=== PATIENT | female | born 1990 | race Hispanic/Latino ===

== ENCOUNTER 2020-07-24 15:46 | Outpatient (CLI) | payer MEDICAID, SELFPAY ==
--- NOTE | ~2020-07-24 | US_ITS ---
EXAMINATION: US OB follow up DATE: 07/24/2020 16:31 INDICATION: Routine care. No care. TECHNIQUE: Real-time ultrasound of the pelvis was performed. COMPARISON: None. FINDINGS: There is a single living fetus in vertex presentation. The placenta is anterior. heart rate is 150 beats per minute (bpm). The amniotic fluid index is 15.1 cm, which is normal. The following biometric data were obtained: Biparietal diameter (BPD): 5.2 cm; head circumference (HC): 19.2 cm; abdominal circumference (AC): 17 .9 cm; femur length (FL): 3.5 cm. These measurements are discordant with FL/AC < 2 standard deviations of the mean. Estimated weight is 467 g +/- 70 g. As single measurements, these parameters are each equal to the following estimated gestational ages: BPD: 21 weeks 5 days. HC: 21 weeks 3 days. AC: 22 weeks 6 days. FL: 21 weeks 1 days. estimated gestational age based solely on measurements from this exam is 21 weeks 6 days +/- 1 weeks 4 days. IMPRESSION: 1. Single living fetus in vertex presentation. 2. Estimated date of delivery of 11/28/2020. 3. Discordant biometrics with low FL/AC ratio. Reviewed, dictated and finalized at location A.
== END 2020-07-24 15:47 | disposition home or self-care (01) ==
PROVIDERS: Visit Provider Obstetrics & Gynecology
DX: Z34.92 Encounter for supervision of normal pregnancy, unspecified, second trimester (principal); Z3A.21 21 weeks gestation of pregnancy
CPT/HCPCS: 76816

== ENCOUNTER 2020-08-24 10:47 | Outpatient (CLI) | payer MEDICAID, SELFPAY ==
--- NOTE | ~2020-08-24 | US_ITS ---
EXAMINATION: US OB /maternal detail DATE: 08/24/2020 12:25 INDICATION: survey TECHNIQUE: Multiple obstetric sonographic images performed. FINDINGS: Ultrasound dated 07/24/2020. There is a single living fetus in transverse presentation. The placenta is anterior without placenta previa. Amniotic fluid volume is normal. DENNY measures 19.1 cm cm. cardiac activity and movement is noted with a heart rate of 163 beats per minute. The following anatomy was identified as normal: 4 chamber heart 3 vessel cord cord insertion kidneys urinary bladder stomach spine diaphragm ventricles cisterna magna cerebellum Nuchal fold not well visualized. The following biometric data were obtained: BPD: 67mm corresponds to gestational age 27 weeks 0 days. Head circumference: 245 mm corresponds to gestational age 26 weeks 5 days. Abdominal circumference: 239 mm corresponds to gestational age 28 weeks 1 days. Femur length: 47 mm corresponds to gestational age 25 weeks 3 days. Head circumference to abdominal circumference ratio: 1.02 (normal range for expected gestational age is 1.05-1.22). Estimated weight: 1020 grams +/- 153 grams using Hadlock method. IMPRESSION: 1: Single living intrauterine with an estimated gestational age of 26weeks 2days by initial ultrasound measurements, with an EDC of 11/28/2020 in length versus presentation. 2. Normal survey. Reviewed, dictated and finalized at location B. IMPRESSION: 1: Single living intrauterine with an estimated gestational age of 26 weeks 2days by initial ultrasound measurements, with an EDC of 11/28/2020 in le ngth versus presentation. 2. Normal survey.
== END 2020-08-24 10:48 | disposition home or self-care (01) ==
PROVIDERS: Visit Provider Obstetrics & Gynecology
DX: Z34.82 Encounter for supervision of other normal pregnancy, second trimester (principal); Z3A.00 Weeks of gestation of pregnancy not specified
CPT/HCPCS: 76805

== ENCOUNTER 2020-09-14 12:23 | Outpatient (CLI) | payer OTHER, SELFPAY ==
--- NOTE | ~2020-09-14 | US_ITS ---
EXAMINATION: US OB follow up DATE: 09/14/2020 13:02 INDICATION: Routine care during third trimester TECHNIQUE: Real-time ultrasound of the pelvis was performed. The interpreting radiologist was not pre sent for the study. COMPARISON: 08/24/2020 FINDINGS: There is a single living fetus in vertex presentation. The placenta is anterior. card iac activity and movement are noted. heart rate is 161 beats per minute (bpm). The amniot ic fluid index is normal. The following biometric data were obtained: Biparietal diameter (BPD): 7.5 cm; head circumference (HC): 28.1 cm; abdominal circumference (AC): 27 .8 cm; femur length (FL): 5.2 cm. The femoral length to biparietal diameter ratio is greater than two standard deviations below the mean. These measurements are otherwise concordant. Estimated weight is 1573 g +/- 235 g, which correlates with the 42nd percentile when 11/21/2020 is used as estimated date of delivery. As single measurements, these parameters are each equal to the following estimated gestational ages w ith ranges of +/- 2 standard deviations: BPD: 30 weeks 1 days +/- 3 weeks 1 days. HC: 30 weeks 6 days +/- 3 weeks 0 days. AC: 31 weeks 6 days +/- 3 weeks 0 days. FL: 28 weeks 0 days +/- 2 weeks 1 days. estimated gestational age based solely on measurements from this exam is 3 weeks 0 days +/- 2 w eeks 1 days. IMPRESSION: 1. Single living fetus in vertex presentation. 2. Estimated weight is 1573 g +/- 235 g, which correlates with the 42nd percentile when 11/22/19 21 is used as estimated date of delivery. 3. Femoral length to biparietal diameter ratio greater than two standard deviations below the mean. Reviewed, dictated and finalized at location A. IMPRESSION: 1. Single living fetus in vertex presentation. 2. Estimated weight is 1573 g +/- 235 g, which correlates with the 42nd p ercentile when 11/21/2020 is used as estimated date of delivery. 3. Femoral length to biparietal diameter ratio greater than two standard deviat ions below the mean.
== END 2020-09-14 12:24 | disposition home or self-care (01) ==
LOC: ANHIMG 12:27
PROVIDERS: Visit Provider Obstetrics & Gynecology
DX: Z34.93 Encounter for supervision of normal pregnancy, unspecified, third trimester (principal); Z3A.30 30 weeks gestation of pregnancy
CPT/HCPCS: 76816

== ENCOUNTER 2020-11-17 10:32 | Outpatient (CLI) | payer OTHER, SELFPAY ==
[2020-11-17] VITALS (7 sets, daily range): BP systolic 92–118; BP diastolic 59–81; PULSE 89–99; BMI 40.1
--- NOTE | ~2020-11-17 | US_ITS ---
EXAMINATION: US OB BPP wo non-stress DATE: 11/17/2020 12:53 INDICATION: Proteinuria, third trimester TECHNIQUE: Real-time pelvic ultrasound was performed. The interpreting radiologist was not present fo r the study. COMPARISON: 09/14/2020 FINDINGS: There is a single living fetus in vertex presentation. The placenta is anterior. heart rate is 152 beats per minute (bpm). Biophysical profile performed by the technologist: breathing (30 sec sustained breathing in 30 minutes): 2 out of 2 movement (3 gross body movements in 30 minutes): 2 out of 2 tone (one episode of rgqzpcn-adynsykdl-wahckwa limb movement): 2 out of 2 Amniotic fluid pocket (2 cm): 2 out of 2 Total score: 8 out of 8 IMPRESSION: 1. Single living fetus in vertex presentation. 2. Biophysical profile 8 out of 8. Reviewed, dictated and finalized at location B.
[2020-11-17 11:52] LABS: Basophils Percent Auto 0.2 % (0.2-1.2); Eosinophils Absolute Auto 0.1 K/mm3 (0-0.3); Eosinophils Percent Auto 0.6 % (0-4.4); Hemoglobin 11.4 g/dL (12.0-15.0); Immature Granulocyte Absolute 0.05 K/mm3 (0.00-0.031); Immature Granulocyte Percent A 0.5 % (0-0.5); Lymphocytes Absolute Auto 1.86 K/mm3 (0.9-3.2); Lymphocytes Percent Auto 17.7 % (18.3-44.2); Mean Corpuscular HGB Conc 32.6 g/dl (32-36); Mean Corpuscular Hemoglobin 28.7 pg (26-34); Mean Corpuscular Volume 88.2 fl (80-100); Mean Platelet Volume 10.2 fl (7.4-10.4); Monocytes Absolute Auto 0.7 K/mm3 (0.1-0.6); Neutrophils Absolute Auto 7.8 K/mm3 (1.3-6.7); Platelet Count Result 260 k/mm3 (150-375); Red Blood Count 3.97 M/mm3 (4.2-5.4); Red Cell Distribution Width 13.7 % (11.5-14.5); White Blood Count 10.5 K/mm3 (4.5-10.0)
--- NOTE | 2020-11-17 11:53 | PC.NURSE ---
Pt arrived with written orders from Dr. Gamboa's office. Pt doesn't speak Chadian. Flatbed Driver line used to register pt, explain todays plan of care, and ask admission assessment questions.
[2020-11-17 12:02] LABS: Add Urine Microscopic? YES; Appearance Urine Cloudy (Clear); Bacteria Urine Trace /hpf; Bilirubin Urine Negative (Negative); Blood Urine Negative (Negative); Color Urine Amber (Yellow); Glucose Urine UA Negative (Negative); Ketones Urine Negative (Negative); Leukocyte Esterase Ur Negative LEU/UL (Negative); Mucus Urine Moderate /lpf; Nitrate Urine Negative (Negative); Protein Urine 2+ mg/dL (Negative); RBC Urine 0-2 /hpf (0-2); Specific Grav Ur 1.028 (1.001-1.035); Squamous Epithelial Cell Urine Moderate /hpf (Few); WBC Urine 0-3 /hpf
[2020-11-17 12:04] LABS: Alanine Aminotransferase 25 U/L (4-35); Albumin Level 3.3 g/dL (3.5-5.1); Alkaline Phosphatase 276 U/L (38-126); Anion Gap 8 mmol/L (8-16); Aspartate Amino Transferase 59 U/L (14-36); Bilirubin,Total 0.3 mg/dL (0.2-1.3); Blood Urea Nitrogen 7 mg/dL (7-17); Carbon Dioxide 18 mmol/L (22-30); Chloride 110 mmol/L (98-107); Estimated Glomerular Filt Rate > 60; Glucose 106 mg/dL (65-110); Potassium 3.8 mmol/L (3.4-5.0); Sodium 136 mmol/L (137-145); Uric Acid 5.3 mg/dL (2.5-7.5)
[2020-11-17 12:04] LABS: Creatinine Urine 236.2 mg/dL; Total Protein Urine Random 173 mg/dL; Ur Ttl Prot Creatinine Ratio 0.73 mg/mg (0-0.20)
--- NOTE | 2020-11-17 12:20 | PC.NURSE ---
Used translation line to explain BPP to pt. Off monitor and to U/S per wheelchair.
--- NOTE | 2020-11-17 12:55 | PC.NURSE ---
Dr. Gamble on unit and had already looked at pt's labs and BP's. Informed NST reactive, pt having some contractions but no different from what she has been having. BPP 12/03. Order received for pt to be discharged to home to continue 24 hr urine collection and to be seen at Dr. Gamboa's office next week.
== END 2020-11-17 13:51 | disposition home or self-care (01) ==
LOC: ANHOBOP 11:12 → ANHOBPP 11:13
PROVIDERS: PCP Physician Assistant; Visit Provider Obstetrics & Gynecology
DX: O13.9 Gestational [pregnancy-induced] hypertension without significant proteinuria, unspecified trimester (principal); Z3A.00 Weeks of gestation of pregnancy not specified
CPT/HCPCS: 36415; 59025; 76819; 80053; 81001; 82570; 84156; 84550; 85025; 99199

== ENCOUNTER 2020-11-18 14:30 | Outpatient (NON) | payer OTHER, SELFPAY ==
[2020-11-18 15:10] VITALS: BMI 40.1
[2020-11-18 15:37] LABS: Collection Time Urine 24 HOURS
[2020-11-18 15:38] LABS: Total Volume 24 Hour Urine 1550 ml
[2020-11-18 15:46] LABS: Creatinine Clearance Urine 159.2 ml/min (75-125); Creatinine Urine 61.4 mg/dL; Patient Weight 195 Lbs; Total Protein Urine Random 97 mg/dL
[2020-11-18 15:48] LABS: Total Protein Urine 24 Hr 1503 mg/24hr (28-141)
== END 2020-11-18 14:31 | disposition home or self-care (01) ==
LOC: ANHOBOP 15:00
PROVIDERS: PCP Physician Assistant; Visit Provider Obstetrics & Gynecology
DX: O13.9 Gestational [pregnancy-induced] hypertension without significant proteinuria, unspecified trimester (principal); Z3A.00 Weeks of gestation of pregnancy not specified
CPT/HCPCS: 81050; 82575; 84156

== ENCOUNTER 2020-11-24 07:13 | Inpatient (IN) | payer OTHER, SELFPAY ==
[2020-11-24] VITALS (31 sets, daily range): BP systolic 110–145; BP diastolic 64–107; PULSE 73–97; RESP 16–18; TEMP 36.2–36.9; O2SAT 98
--- NOTE | 2020-11-24 07:12 | LDADM ---
This patient, Jaki Jett, was admitted to Labor/Delivery/Recovery 106 on 11/24/20 at 07:13. Plans for labor, pain management and were discussed with patient. Patient/family oriented to hospital policies and general routines including ID bracelet, bed and alarms, visiting hours, pain management, procedures, bathroom and other care routines, personal items, smoking policy, room service/diet and guest tray routines, security routines, and visiting hours. Patient/Family are encouraged to report perceived risks to care and to ask questions if they do not understand what they are told or what they should do. See OBIX for further documentation.
[2020-11-24 07:56] LABS: Basophils Percent Auto 0.3 % (0.2-1.2); Eosinophils Absolute Auto 0.1 K/mm3 (0-0.3); Eosinophils Percent Auto 0.6 % (0-4.4); Hematocrit 35.1 % (37.0-47.0); Hemoglobin 11.2 g/dL (12.0-15.0); Immature Granulocyte Absolute 0.04 K/mm3 (0.00-0.031); Immature Granulocyte Percent A 0.3 % (0-0.5); Lymphocytes Absolute Auto 2.53 K/mm3 (0.9-3.2); Mean Corpuscular HGB Conc 31.9 g/dl (32-36); Mean Corpuscular Hemoglobin 28.2 pg (26-34); Mean Corpuscular Volume 88.4 fl (80-100); Mean Platelet Volume 10.5 fl (7.4-10.4); Monocytes Absolute Auto 0.6 K/mm3 (0.1-0.6); Monocytes Percent Auto 5.4 % (2.6-8.5); Neutrophils Absolute Auto 8.2 K/mm3 (1.3-6.7); Neutrophils Percent Auto 71.4 % (45.5-73.1); Nucleated Red Blood Cells Perc 0.2 % (0.0-0.2); Platelet Count Result 269 k/mm3 (150-375); Red Blood Count 3.97 M/mm3 (4.2-5.4); Red Cell Distribution Width 14.1 % (11.5-14.5); White Blood Count 11.5 K/mm3 (4.5-10.0)
--- NOTE | 2020-11-24 08:05 | WPDANESEPP ---
Anes - Eval Pre Procedure Procedure: labor epidural Date/Time: 11/24/20 08:05 Surgeon: roxie Preop Diagnosis: pain during labor Pre Op Diagnosis: IOL Patient Data Age: 30 Gender: F Height: Weight: Last Vital Signs Pulse 82 11/24/20 08:01 BP 124/77 11/24/20 08:01 Allergies Allergy/AdvReac Type Severity Reaction Status Date / Time No Known Allergies Allergy Verified 10/30/20 14:01 Home Medications Medication Instructions Recorded Confirmed Type No Home Medications 10/30/20 10/30/20 History Laboratory Tests 11/24/20 11/24/20 11/24/20 07:47 07:47 07:47 WBC Pending RBC Pending Hgb Pending Hct Pending MCV Pending MCH Pending MCHC Pending RDW Pending Plt Count Pending MPV Pending Immature Gran % (Auto) Pending Neut % (Auto) Pending Lymph % (Auto) Pending [place] % (Auto) Pending Eos % (Auto) Pending Baso % (Auto) Pending Lymph # (Auto) Pending [place] # (Auto) Pending Eos # (Auto) Pending Baso # (Auto) Pending Abs Immat Gran (auto) Pending Absolute Neuts (auto) Pending Absolute Nucleated RBC Pending Nucleated RBC % Pending RPR Pending HIV 1&2 Ab/P24 Ag 4thGn Pending Patient hx anesthesia problems: none Family hx anesthesia problems: none PMFSH Family History Family History (Updated 10/30/20 @ 14:04 by Anna Jules RN) Other No pertinent family history Social History Social History Substance use: never Spiritual care concerns: No Exam Day of Procedure 11/24/20 08:05
[2020-11-24] MEDS: LACTATED RINGERS 1,000 ML 125 ML IV CONT (08:09)
[2020-11-24] MEDS: OXYTOCIN 30 UNITS/NS 500 ML 30 UNITS/500 ML BAG IV CONT (08:10)
[2020-11-24 08:52] LABS: HIV 1/2 Ab P24 Ag Result Negative (Negative)
--- NOTE | 2020-11-24 09:40 | PM.IMHP ---
H&P: HPI History of Present Illness Date/Time: 11/24/20 09:40 30 yo HF at 39w0d presents for IOL. complicated by h/o MTHFR and HSV currently on antiviral therapy. She has Gestational proteinuria as well as elevated liver enzymes and needs IOL . I explained her condition procedure and risks involved using an translation line in [place]. She understands accepts and agrees to proceed her care began July 12, 2020. She has had 10 visits with her evaluated by ultrasound normal with a negative anomaly screen. Noninvasive testing was normal with no evidence of genetic abnormality and male infant identified. A 1 hour glucose test was elevated but 3 hour glucose tolerance test was normal. Her GBS is negative. She developed gestational proteinuria with a 1000 mg per 24 hours and elevated liver enzymes with normal platelet count and normal blood pressures. Now at 39 weeks and favorable cervix is being admitted for induction of labor. She understands maternal or indications for delivery with risks involved including but not limited to bleeding infection injury to bladder bowel baby pelvic vessel DVT pneumonia wound infection UTI and the risk of anesthesia as well as hemorrhage and agrees to proceed. NCB NO EPIDURAL, baby boy, No to circ, breast and bottle feed, PEDS SI @ [place] Chief Complaint: Term with elective induction of labor Review of Systems Review of Systems: All systems reviewed & are unremarkable except as noted in HPI and below Constitutional: Constitutional: Reports no additional constitutional complaints Eyes: Eyes: Reports no additional eye complaints ENT: Reports system reviewed and no additional complaints, except as documented Cardiovascular: Cardiovascular: Reports no additional cardiovascular complaints Respiratory: Respiratory: Reports no additional respiratory complaints Gastrointestinal: Gastrointestinal: Reports no additional gastrointestinal complaints Genitourinary: Genitourinary: Reports no additional female genitourinary complaints Musculoskeletal: Musculoskeletal: Reports no additional musculoskeletal complaints Integumentary/Breasts: Skin/Breast: Reports system reviewed and no additional complaints, except as docu Neurologic: Reports system reviewed and no additional complaints, except as documented Psychiatric: Psychiatric: Reports no additional psychiatric complaints Endocrine: Endocrine: Reports no additional endocrine complaints Hematologic/Lymphatic: Hematologic/Lymphatic: Reports no additional hematologic/lymphatic complaints Allergic/Immunologic: Allergic/Immunologic: Reports no additional allergic/immunologic complaints [facility] Past Medical History Medical History (Updated 11/24/20 @ 10:01 by Jaya Gamboa MD) Bacterial vaginosis Candidiasis of vagina Elevated liver enzymes Genital herpes simplex Gestational proteinuria Homozygous MTHFR mutation C677T Urinary tract infection affecting Vaginal delivery 11/02/2014138.1MVaginalFull Term [facility] Vaginal delivery 10/04/2016139.23 hrs.7 lbs.13 oz.MVaginalFull Term [facility] Family History Family History Other No pertinent family history Social History Social History (Updated 11/24/20 @ 09:58 by Jaya Gamboa MD) Smoking status: Never smoker Second hand tobacco smoke exposure: No Alcohol intake: never Substance use: never Substance use type: does not use Living arrangements: with family Occupation/Education: unemployed Gender identity (if verbalized by the patient): Female Sexual Orientation (if Verbalized by the Patient): Straight or Heterosexual Spiritual care concerns: No Agree to blood products: Yes Meds Home Medications and Allergies Home Medications Medica
--- NOTE | 2020-11-24 09:51 | WPDHPUPDATE1 ---
History and Physical Update Update Date/Time: 11/24/20 09:51 History and Physical has been reviewed, including an updated exam of the patient. There are NO changes in the patient's condition. Risks, benefits, and alternatives have been discussed and questions answered. Patient agrees to proceed with procedure. 30 yo HF at 39w0d presents for IOL. complicated by h/o MTHFR and HSV currently on antiviral therapy. She has Gestational proteinuria as well as elevated liver enzymes and needs IOL . I explained her condition procedure and risks involved using an translation line in Serbian. She understands accepts and agrees to proceed her care began July 12, 2020. She has had 10 visits with her evaluated by ultrasound normal with a negative anomaly screen. Noninvasive testing was normal with no evidence of genetic abnormality and male identified. A 1 hour glucose test was elevated but 3 hour glucose tolerance test was normal. Her GBS is negative. She developed gestational proteinuria with a 1000 mg per 24 hours and elevated liver enzymes with normal platelet count and normal blood pressures. Now at 39 weeks and favorable cervix is being admitted for induction of labor. She understands maternal or indications for delivery with risks involved including but not limited to bleeding infection injury to bladder bowel baby pelvic vessel DVT pneumonia wound infection UTI and the risk of anesthesia as well as hemorrhage and agrees to proceed. NCB NO EPIDURAL, baby boy, No to circ, breast and bottle feed, [facility]
[2020-11-24 11:40] LABS: Rapid Plasma Reagin Non-Reactive (NonReactive)
--- NOTE | 2020-11-24 13:05 | PM.OBPNLAB ---
Pain Control Date/time seen: 11/24/20 8685 Pain control: tolerating well Comments: SROM c Pelvic Exam Dilation (cm): 8 Effacement (%): 90 station: -1 Amniotic membrane status: Ruptured (srom clear) Contractions Monitor mode: External Contraction frequency: 2 Contraction duration: 45 Contraction pattern: Regular Contraction phase: Contraction Contraction intensity: Strong/Firm Status status: Category l Assessment and Plan Pitocin rate (mU/min): 12 Assessment: active labor Plan: continuous present management
[2020-11-24] MEDS: OXYTOCIN 30 UNITS/NS 500 ML 30 UNITS/500 ML BAG 125 UNITS IV CONT (14:41)
--- NOTE | 2020-11-24 14:42 | P.PCNOB_ITS ---
OB - Delivery Note Procedure Delivery date: 11/24/20 Procedure: Normal spontaneous vertex vaginal delivery a viable male infant and placenta Repair of second-degree perineal laceration events: Labor Induction Intrapartal events: None Induction method: per pitocin protocol Delivery monitor: external FHT Route of delivery: Episiotomy description: None Laceration Description: Perineal - 2nd Degree Delivery repair: vicryl Specimen: Yes ( placenta, cord blood, cord blood gases) Quantitative Blood Loss (ml): 250 Anesthesia type: Local ( 1% lidocaine) Disposition: floor Complications: none Narrative: patient completely dilated and had a normal spontaneous vertex vaginal delivery over intact perineum a viable male infant nuchal cord x1 reduced on the perineum shoulders delivered without difficulty delivered and placed onto the maternal abdomen. Cord clamped and cut handed to nursery nurse in attendance. scores given 9 and 9 weight 7 lb 15 oz 19- 1/2 inches long taken to the nursery in stable condition had a normal transition period time of delivery 14 10 placenta delivered spontaneously intact with a three-vessel cord at 14 15. The uterus contracted well with Pitocin given intravenously. The second-degree perineal laceration was repaired with 2 0 Vicryl in a running fashion. The cervix and rectum were checked there was no sponges left in the vagina the anal sphincters intact. Patient tolerated the procedure well mom and baby in stable condition. [place] Baby Date of : 11/24/20 Time of : 14:10 Weeks of gestation at delivery: 39 gender: Male ( Charanjit) Weight (pounds): 7 Weight (ounces): 15 presentation: vertex position: Left Occiput Anterior Placenta delivery description: Spontaneous and Normal Configuration cord vessel description: 3 Vessels and Nuchal Cord score one minute: 9 score five minutes: 9 Narrative: spontaneous respirations and cry normal exam taken to the nursery in stable condition normal transition
--- NOTE | 2020-11-24 18:59 | PC.NURSE ---
1648 Pt admitted to room 286 per wheelchair from labor and delivery after spontaneous vaginal delivery of viable male infant at [address] Gamboa. Mother is a and is choosing to breast and bottle feed her baby. Pt's present. Language line used to admit pt and explain procedures. They were told about the admission folder, which is in Bulgarian. Pt's VSS and asssessment WNL.
[2020-11-25] VITALS: BP 111/77; PULSE 77; RESP 16; TEMP 36.8; O2SAT 98
[2020-11-25 04:00] VITALS: BP 113/80; PULSE 83; RESP 16; TEMP 36.5; O2SAT 98
[2020-11-25 05:11] LABS: Hematocrit 32.3 % (37.0-47.0); Hemoglobin 10.5 g/dL (12.0-15.0)
[2020-11-25 09:00] VITALS: BP 110/75; PULSE 90; RESP 18; TEMP 36.6; O2SAT 99
--- NOTE | 2020-11-25 09:00 | PC.NURSE ---
Pt introductions made and plan of care discussed per post , pain management, bottle feeding, daily care activities and pending discharge to home. PT and spouse do not speak [place]ijani so language line used on phone to help understanding and answer questions and give accurate information. One to one discussion and demonstration used to communicate to both and pt. Language is a barrier to communication. Both PT and spouse verbalized understanding of such instructions and had no questions.
--- NOTE | 2020-11-25 09:01 | PM.OBDSVD ---
DS: Admitting Diagnosis Admitting Diagnosis 1) Term : Code(s): Z34.90 - Encounter for supervision of normal , unspecified, unspecified trimester Status: Acute (2) Encounter for elective induction of labor: Code(s): Z34.90 - Encounter for supervision of normal , unspecified, unspecified trimester Status: Acute (3) Gestational proteinuria: Code(s): O12.10 - Gestational proteinuria, unspecified trimester Status: Acute (4) Elevated liver enzymes: Code(s): R74.8 - Abnormal levels of other serum enzymes Status: Acute (5) Genital herpes simplex: Code(s): A60.00 - Herpesviral infection of urogenital system, unspecified Status: Acute (6) Homozygous MTHFR mutation C677T: Code(s): Z15.89 - Genetic susceptibility to other disease DS: Discharge Diagnosis Discharge Diagnosis (1) Term delivered: Code(s): O80 - Encounter for full-term uncomplicated delivery Status: Acute (2) Encounter for elective induction of labor: Code(s): Z34.90 - Encounter for supervision of normal , unspecified, unspecified trimester Status: Acute (3) Elevated liver enzymes: Code(s): R74.8 - Abnormal levels of other serum enzymes Status: Acute (4) Gestational proteinuria: Code(s): O12.10 - Gestational proteinuria, unspecified trimester Status: Acute (5) Genital herpes simplex: Code(s): A60.00 - Herpesviral infection of urogenital system, unspecified Status: Acute (6) Homozygous MTHFR mutation C677T: Code(s): Z15.89 - Genetic susceptibility to other disease Status: Acute OB - DS: Summary Hospital Course Time spent discussing smoking cessation with patient: 3 to 10 minutes OB Procedures : Ultrasound OB Procedures Intrapartum: Spontaneous Vag Delivery OB Procedures: : None Peripartum Data Delivery Method: Natural Vaginal Laceration Description: Perineal - 2nd Degree Episiotomy description: None Procedures: normal spontaneous vertex vaginal delivery a viable male infant and placenta Repair of second-degree perineal laceration complications: none 1: Gender: Male Disposition of : home Status at Discharge Cognitive/behavioral status at discharge: normal Functional status at discharge: independent ambulation Overall status at discharge: patient is back to baseline Time Spent with Patient Time attestation: Total time spent providing and/or coordinating discharge services: Time spent: Less than 30 minutes Exam Const: General: cooperative, healthy appearing, comfortable, no acute distress, well developed, alert, awake and Physically active Nutritional Appearance: average body habitus and obese Orientation/consciousness: patient oriented x3 Limitations: no limitations HENMT: Head: normal to inspection Eyes: General: appearance normal, both eyes and all related structures Neck: Neck: normal visual inspection Chest: Chest palpation & inspection: normal inspection of the chest Resp: Effort & Inspection: normal respiratory effort Cardio: Rate: regular rate Rhythm: regular rhythm GI: Inspection: normal to inspection GI Palp: Yes Soft to palpation Auscultation: normal bowel sounds : External Female Exam: normal external appearance Bimanual exam- vagina & uterus: non-tender Back/Spine/Pelvis: Back: no CVA tenderness Skin: General skin exam: normal color Neuro: General: patient oriented x3, gait normal, tone normal and moves all extremities Extrem: General: normal to inspection and full ROM Psych: Appearance: grossly normal Mental Status: mental status grossly normal Speech and movement: Normal speech and movement present Affect: normal affect Attitude: cooperative Thought process: Normal thought process present Thought content: Yes Normal thought content present Insight: Good insight present (P
[2020-11-25] MEDS: MULTIVIT/MIN/PREN/FOL AC/IRON TABLET 1 TAB PO (12:15)
[2020-11-25 12:30] VITALS: BP 108/71; PULSE 88; RESP 18; TEMP 36.9; O2SAT 99
--- NOTE | 2020-11-25 17:30 | PC.NURSE ---
Pt received discharge instructions per protocol using telephone translation jeanie and any questions or concerns answered. PT verbalized understanding of such instructions.
--- NOTE | 2020-11-25 18:10 | PC.NURSE ---
Pt discharged to home ambulatory to waiting car accompanied by spouse and infant. Follow up appts confirmed.
[2020-11-27 07:44] VITALS: BP 112/80; PULSE 103; RESP 20; TEMP 37.1; O2SAT 99
== END 2020-11-25 18:10 | disposition home or self-care (01) | DRG 560 ==
LOC: ANHLDR 14:52 → ANHOB2 16:56
PROVIDERS: Admitting Provider Obstetrics & Gynecology; PCP Physician Assistant; Visit Provider Obstetrics & Gynecology
DX: O12.14 Gestational proteinuria, complicating childbirth (principal); Z37.0 Single live birth; Z3A.39 39 weeks gestation of pregnancy; O70.1 Second degree perineal laceration during delivery; O69.2XX0 Labor and delivery complicated by other cord entanglement, with compression, not applicable or unspecified; O99.284 Endocrine, nutritional and metabolic diseases complicating childbirth; E72.12 Methylenetetrahydrofolate reductase deficiency; O98.32 Other infections with a predominantly sexual mode of transmission complicating childbirth; A60.00 Herpesviral infection of urogenital system, unspecified
CPT/HCPCS: 36415; 85014; 85018; 85025; 86592; 86703; 86850; 86900; 86901; 88307; A9270; G0432; J2590; J7120